=== PATIENT | female | born 1980 | race Caucasian/White ===

== ENCOUNTER 2021-08-31 10:50 | Emergency (ER) | payer OTHER, MEDICAID | END 2021-08-31 14:53 | disposition home or self-care (01) | LOC: ER1 10:50 | DX: S13.4XXA Sprain of ligaments of cervical spine, initial encounter (principal); S80.12XA Contusion of left lower leg, initial encounter; J45.909 Unspecified asthma, uncomplicated; F17.210 Nicotine dependence, cigarettes, uncomplicated; V43.52XA Car driver injured in collision with other type car in traffic accident, initial encounter; W22.10XA Striking against or struck by unspecified automobile airbag, initial encounter; Y92.410 Unspecified street and highway as the place of occurrence of the external cause | CPT/HCPCS: 71046; 72040; 72072; 72100; 73564; 73590; 99283 ==